=== PATIENT | male | born 1950 | race Caucasian/White ===

== ENCOUNTER 2021-01-11 10:46 | Emergency (ER) | payer MEDICARE, OTHER ==
[~2021-01-11] VITALS: Ht 175.3 cm; Wt 88.6 kg
[2021-01-11 11:29] LABS: BASO # 0.1 (0.0-0.2); BASO % 0.7 % (0.0-2.0); EOS # 0.1 (0.0-0.7); EOS % 0.8 % (0-4.0); GRAN # 5.1 (1.4-6.5); GRAN % 60.5 % (42.2-75.2); HEMATOCRIT 42.8 % (42.0-52.0); HEMOGLOBIN 14.1 g/dl (13.5-18.0); LYMPH # 2.5 (1.2-3.4); LYMPH % 29.6 % (20.0-51.0); MEAN CELL VOLUME 97 fl (80.0-100.0); MEAN CORPUSCULAR HEMOGLOBIN 32 pg (27.0-31.0); MEAN CORPUSCULAR HGB CONC 33 g/dl (33.0-37.0); MONO # 0.7 (0.1-0.6); PLATELET COUNT 213 K/mm3 (130-400); RED BLOOD COUNT 4.41 M/mm3 (4.20-5.60); REDCELL DISTRIBUTION WIDTH-CV 14.5 % (11.5-14.5)
[2021-01-11 11:37] LABS: ALANINE AMINOTRANSFERASE 27 U/L (4-49); ALBUMIN 3.9 gm/dL (3.5-5.0); ALKALINE PHOSPHATASE 67 U/L (50-136); ANION GAP 5 mmol/L (7-16); AST,SGOT 28 U/L (15-37); BILIRUBIN,TOTAL 1.1 mg/dL (0.0-1.0); BLOOD UREA NITROGEN 16 mg/dL (9-20); CALCIUM 9.3 mg/dL (8.4-10.2); CARBON DIOXIDE 27 mmol/L (22-30); CHLORIDE 104 mmol/L (98-107); CREATININE, serum 1.06 (0.66-1.25); GLUCOSE 98 mg/dL (74-106); POTASSIUM 4.3 mmol/L (3.4-5.0); SODIUM 136 mmol/L (137-145); TOTAL PROTEIN 6.3 gm/dL (6.4-8.2)
[2021-01-11 11:50] LABS: TROPONIN-I < 0.012 ng/mL (0.000-0.035)
[2021-01-11] MEDS ORDERED: ELIQUIS 5MG PO (13:59)
[2021-01-11 14:00] VITALS: BP 115/72; PULSE 62; TEMP 98.3
== END 2021-01-11 14:16 | disposition home or self-care (01) ==
LOC: COL.ER 10:46
PROVIDERS: Emergency Medicine
DX: I48.91 Unspecified atrial fibrillation (principal)

== ENCOUNTER 2021-02-08 07:33 | Day surgery (SDC) | payer MEDICARE, OTHER ==
[~2021-02-08] VITALS: Ht 175.4 cm; Wt 87.1 kg
[~2021-02-08 07:33] MED LIST: ELIQUIS 5MG PO
[2021-02-08 08:29] VITALS: BP 139/90; PULSE 71; TEMP 98.3
[2021-02-08] MEDS ORDERED: CELLCEPT 5500 MG/TAB PO (08:32)
[2021-02-08] MEDS ORDERED: DESYREL 50MG50 MG PO (08:33)
[2021-02-08] MEDS ORDERED: ASPIRIN E.C. 8181 MG PO (08:33)
[2021-02-08] MEDS ORDERED: BACTRIM DS 8001 TAB PO (08:33)
[2021-02-08] MEDS ORDERED: PROTONIX 40MG T40 MG PO (08:34)
[2021-02-08] MEDS ORDERED: PROAIR HFA0.09 MG/AC IH (08:34)
[2021-02-08] MEDS ORDERED: ALBUTEROL0.83 MG/ML IH (08:34)
[2021-02-08] MEDS ORDERED: LIPITOR20 MG PO (08:35)
[2021-02-08] MEDS ORDERED: CYMBALTA 30MG30 MG PO (08:35)
[2021-02-08] MEDS ORDERED: RT ADVAIR 528 DISKUS IH (08:35)
[2021-02-08] MEDS ORDERED: SYNTHROID0.075 MG/T PO (08:36)
[2021-02-08] MEDS ORDERED: VALIUM 10MG10 MG/TAB PO (08:36)
[2021-02-08] MEDS ORDERED: VERELAN240 MG PO (08:37)
[2021-02-08] MEDS ORDERED: SINGULAIR 110 MG/TAB PO (08:37)
[2021-02-08] MEDS ORDERED: FLOMAX 0.40.4 MG/CAP PO (08:37)
[2021-02-08] MEDS ORDERED: ZIAC 10/6.25M1 UDTAB PO (08:38)
[2021-02-08] MEDS ORDERED: VITAMINC1000TA PO (08:38)
[2021-02-08] MEDS ORDERED: PROBIOTIC FORMU1 CAP PO (08:38)
[2021-02-08] MEDS ORDERED: VITAMIN D31000 I1 PO (08:39)
[2021-02-08] MEDS ORDERED: PHARMASSURE ZIN50 MG PO (08:44)
[2021-02-08] MEDS ORDERED: CEPHALEXIN500 M1 PO (10:13)
[2021-02-08 11:15] VITALS: BP 100/76; PULSE 80
--- NOTE | 2021-02-08 11:15 | NUR ---
DC instructions reviewed with pt, he expresses understanding. He has been sitting up on edge of bed following procedure, no c/o dizziness or other concerns. Bandage over loop implant site remain clean dry and intact. He has tolerated PO intake with no issue. He is assisted out to 's car by wheelchair with all belongings.
== END 2021-02-08 11:15 | disposition home or self-care (01) ==
LOC: COL.CAR 07:33
DX: I48.0 Paroxysmal atrial fibrillation (principal); N18.5 Chronic kidney disease, stage 5; I12.0 Hypertensive chronic kidney disease with stage 5 chronic kidney disease or end stage renal disease; J44.9 Chronic obstructive pulmonary disease, unspecified; M19.90 Unspecified osteoarthritis, unspecified site; G47.33 Obstructive sleep apnea (adult) (pediatric); U07.1 COVID-19; I07.1 Rheumatic tricuspid insufficiency; I25.10 Atherosclerotic heart disease of native coronary artery without angina pectoris; E78.5 Hyperlipidemia, unspecified; Z90.5 Acquired absence of kidney; Z79.899 Other long term (current) drug therapy; Z85.828 Personal history of other malignant neoplasm of skin; Z90.89 Acquired absence of other organs; Z79.890 Hormone replacement therapy; Z87.891 Personal history of nicotine dependence; Z79.01 Long term (current) use of anticoagulants; Z99.89 Dependence on other enabling machines and devices
CPT/HCPCS: 27124; C1764

== ENCOUNTER 2021-02-15 12:41 | Emergency (ER) | payer MEDICARE, OTHER ==
[~2021-02-15] VITALS: Ht 175.3 cm; Wt 87.7 kg
[~2021-02-15 12:41] MED LIST changes: +ALBUTEROL0.83 MG/ML IH; +ASPIRIN E.C. 8181 MG PO; +BACTRIM DS 8001 TAB PO; +CELLCEPT 5500 MG/TAB PO; +CEPHALEXIN500 M1 PO; +CYMBALTA 30MG30 MG PO; +DESYREL 50MG50 MG PO; +FLOMAX 0.40.4 MG/CAP PO; +LIPITOR20 MG PO; +PHARMASSURE ZIN50 MG PO; +PROAIR HFA0.09 MG/AC IH; +PROBIOTIC FORMU1 CAP PO; +PROTONIX 40MG T40 MG PO; +RT ADVAIR 528 DISKUS IH; +SINGULAIR 110 MG/TAB PO; +SYNTHROID0.075 MG/T PO; +VALIUM 10MG10 MG/TAB PO; +VERELAN240 MG PO; +VITAMIN D31000 I1 PO; +VITAMINC1000TA PO; +ZIAC 10/6.25M1 UDTAB PO
[2021-02-15 12:42] VITALS: TEMP 98.5
[2021-02-15 13:21] LABS: BASO # 0.1 (0.0-0.2); BASO % 0.6 % (0.0-2.0); EOS # 0.1 (0.0-0.7); EOS % 0.5 % (0-4.0); GRAN # 6.1 (1.4-6.5); GRAN % 58.3 % (42.2-75.2); HEMATOCRIT 45.3 % (42.0-52.0); HEMOGLOBIN 15.2 g/dl (13.5-18.0); LYMPH # 3.3 (1.2-3.4); LYMPH % 31.3 % (20.0-51.0); MEAN CELL VOLUME 93 fl (80.0-100.0); MEAN CORPUSCULAR HEMOGLOBIN 31 pg (27.0-31.0); MEAN CORPUSCULAR HGB CONC 34 g/dl (33.0-37.0); MEAN PLATELET VOLUME 11.4 fl (7.4-10.4); MONO # 0.9 (0.1-0.6); MONO % 8.9 % (1.7-9.3); PLATELET COUNT 183 K/mm3 (130-400); RED BLOOD COUNT 4.85 M/mm3 (4.20-5.60); REDCELL DISTRIBUTION WIDTH-CV 12.9 % (11.5-14.5)
[2021-02-15 13:51] LABS: ALANINE AMINOTRANSFERASE 27 U/L (4-49); ALBUMIN 3.6 gm/dL (3.5-5.0); ALKALINE PHOSPHATASE 69 U/L (50-136); ANION GAP 5 mmol/L (7-16); AST,SGOT 27 U/L (15-37); BLOOD UREA NITROGEN 23 mg/dL (9-20); CALCIUM 9.5 mg/dL (8.4-10.2); CARBON DIOXIDE 28 mmol/L (22-30); CHLORIDE 103 mmol/L (98-107); CREATININE, serum 1.01 (0.66-1.25); GLUCOSE 83 mg/dL (74-106); POTASSIUM 4.2 mmol/L (3.4-5.0); SODIUM 136 mmol/L (137-145); TOTAL PROTEIN 6.1 gm/dL (6.4-8.2)
[2021-02-15 14:04] LABS: TROPONIN-I < 0.012 ng/mL (0.000-0.035)
[2021-02-15] MEDS ORDERED: TOPROL XL 50MG50 MG PO (14:11)
[2021-02-15 14:25] VITALS: BP 138/91; PULSE 69
== END 2021-02-15 14:25 | disposition home or self-care (01) ==
LOC: COL.ER 12:41
PROVIDERS: Emergency Medicine
DX: I48.91 Unspecified atrial fibrillation (principal); I10 Essential (primary) hypertension; Z79.01 Long term (current) use of anticoagulants; Z87.891 Personal history of nicotine dependence; Z79.899 Other long term (current) drug therapy